=== PATIENT | female | born 1955 | race African-American/Black ===

== ENCOUNTER 2019-09-24 05:37 | Emergency (ER) | payer OTHER ==
[2019-09-24] MEDS ORDERED: Aspirin Chewable 81 MG TAB ONE (06:26)
[2019-09-24] MEDS ORDERED: Mag-Al 1200 mg/1200 mg/30 ML UDCUP ONE (06:26)
[2019-09-24] MEDS ORDERED: Lidocaine Viscous Sol 2% 15 ml UD Cup ONE (06:26)
[2019-09-24 06:30] LABS: #Lymphocytes 1.3 thou/uL (1.20-3.40); #Monocytes 0.4 thou/uL (0.11-0.59); #Neutrophils 3.2 thou/uL (1.40-6.50); %Basophils 0.6 % (0.0-1.0); %Eosinophils 0.5 % (0.0-10.0); %Lymphocytes 26.5 % (21.0-51.0); %Monocytes 8.4 % (0.0-10.0); Hemoglobin 15.9 g/dL (12.0-16.0); Mean Corpuscular HGB CONC 32.8 g/dL (32.0-36.0); Mean Corpuscular Volume 91.5 fL (78.0-98.0); Mean Platelet Volume 9.2 fL (7.4-10.4); Platelet Count 195 thou/uL (130-400); RBC Distribution Width 12.1 % (11.5-14.5)
[2019-09-24 06:52] LABS: ALT (SGPT) 35 U/L (8-55); AST (SGOT) 48 U/L (5-34); Alkaline Phosphatase 80 U/L (40-110); Anion Gap 12 mmol/L (10-20); BUN (Urea Nitrogen) 18 mg/dL (9.8-20.1); Bilirubin, Total 0.4 mg/dL (0.2-1.2); Calc. Creatinine Clearance 0 mL/min (70-130); Calcium 9.4 mg/dL (7.8-10.44); Carbon Dioxide 28 mmol/L (23-31); Chloride 99 mmol/L (98-107); Estimated GFR-MDRD 69; Globulin 3.5 g/dL (2.4-3.5); Glucose 101 mg/dL (80-115); Potassium 5.9 mmol/L (3.5-5.1); Protein, Total 7.5 g/dL (6.0-8.3); Sodium 133 mmol/L (136-145)
--- NOTE | 2019-09-24 07:50 | RAD ---
Chest one view HISTORY: Chest pain. COVID positive. COMPARISON: 06/21/2015. FINDINGS: Cardiac silhouette and pulmonary vasculature are unremarkable. Mediastinum is midline. Lungs are hyperinflated. Calcified granulomata are consistent with healed granulomatous disease. No lobar consolidation or evidence of pneumothorax. Lung apices are partially excluded from the image . cardiac monitor leads overlie the chest. IMPRESSION : Chronic-type findings. No active cardiopulmonary abnormalities are demonstrated.
[2019-09-24 09:32] LABS: Troponin I 0.013 ng/mL (< 0.028)
== END 2019-09-24 11:10 | disposition home or self-care (01) ==
LOC: ERS 05:37
DX: U07.1 COVID-19 (principal); R03.0 Elevated blood-pressure reading, without diagnosis of hypertension; E87.5 Hyperkalemia; R07.9 Chest pain, unspecified; F17.210 Nicotine dependence, cigarettes, uncomplicated; Z79.899 Other long term (current) drug therapy
CPT/HCPCS: 36415; 71045; 80053; 84484; 85025; 93005